=== PATIENT | male | born 1960 | race Caucasian/White ===

== ENCOUNTER 2017-11-01 09:14 | Emergency (ER) | payer MEDICAID, OTHER ==
[2017-11-01 10:15] LABS: BASO % 0.1 % (0.0-2.0); EOS # 0.3 K/uL (0.0-0.7); EOS % 9.1 % (0.0-4.0); HEMOGLOBIN 15.2 g/dL (12.0-18.0); LYMPH # 1.9 K/uL (1.0-4.3); MEAN CELL VOLUME 83.2 fL (80.0-94.0); MEAN CORPUSCULAR HEMOGLOBIN 27.3 pg (27.0-31.0); MEAN CORPUSCULAR HGB CONC 32.9 g/dL (33.0-37.0); MEAN PLATELET VOLUME 7.1 fL (7.2-11.7); MONO # 0.3 K/uL (0.0-0.8); MONO % 7.6 % (0.0-10.0); NEUT # 1.2 K/uL (1.8-7.0); NEUT % 32.2 % (50.0-75.0); NRBC % 0.1 % (0.0-2.0); RBC 5.57 Mil/uL (4.40-5.90); RED CELL DISTRIBUTION WIDTH 13.3 % (11.5-14.5)
[2017-11-01 10:16] LABS: WHITE BLOOD COUNT 3.7 K/uL (4.8-10.8)
[2017-11-01 10:29] LABS: CALCIUM 8.9 mg/dl (8.6-10.4)
[2017-11-01 10:39] LABS: ALB/GLOB RATIO 1.3 (1.0-2.1); ALBUMIN 4.4 g/dL (3.5-5.0); ALT/SGPT 80 U/L (21-72); AST/SGOT 48 U/L (17-59); BLOOD UREA NITROGEN 18 mg/dL (9-20); GFR NON-AFRICAN AMERICAN > 60
--- NOTE | 2017-11-01 11:20 | RAD ---
Date of service: 11/01/2017 PROCEDURE: CHEST RADIOGRAPH, 1 VIEW HISTORY: chest pain COMPARISON: None available. FINDINGS: LUNGS: Clear. PLEURA: No pneumothorax or pleural fluid seen. CARDIOVASCULAR: Minimal cardiomegaly. Possible minimal pulmonary venous congestion OSSEOUS STRUCTURES: Thoracic spondylosis. Bilateral shoulder arthrosis. VISUALIZED UPPER ABDOMEN: Normal. OTHER FINDINGS: None. IMPRESSION: Minimal cardiomegaly. Possible minimal pulmonary venous congestion.
--- NOTE | 2017-11-01 11:20 | C.PDOC ---
History Of Present Illness The patient reports 2 day history of right rib pain which he describes as sharp. Patient states that the pain is worsened with coughing and movement. Denies history of similar symptoms, fever, nausea, vomiting, SOB, back pain, numbness, weakness. Time Seen by Provider: 11/01/17 09:22 Chief Complaint (Nursing): Rib Injury History Per: Patient History/Exam Limitations: no limitations Current Symptoms Are (Timing): Still Present Severity: Mild Recent travel outside of the [place]: No Past Medical History Reviewed: Historical Data, Nursing Documentation, Vital Signs Vital Signs: Last Vital Signs Temp 98.6 F 11/01/17 11:24 Pulse 66 11/01/17 11:24 Resp 18 11/01/17 11:24 BP 135/80 11/01/17 11:24 Pulse Ox 96 11/01/17 11:31 - Medical History PMH: No Chronic Diseases Family History: States: No Known Family Hx - Social History Hx Tobacco Use: Yes Hx Alcohol Use: No Hx Substance Use: No - Immunization History Hx Tetanus Toxoid Vaccination: No Hx Influenza Vaccination: No Hx Pneumococcal Vaccination: No Review Of Systems Constitutional: Negative for: Fever, Chills ENT: Negative for: Ear Pain Cardiovascular: Positive for: Chest Pain. Negative for: Edema, Light Headedness Respiratory: Negative for: Cough Gastrointestinal: Negative for: Nausea, Vomiting, Abdominal Pain Genitourinary: Negative for: Dysuria Musculoskeletal: Negative for: Neck Pain Skin: Negative for: Rash, Lesions Neurological: Negative for: Weakness, Numbness Psych: Negative for: Anxiety, Depression Physical Exam - Physical Exam Appears: Non-toxic, No Acute Distress Skin: Normal Color, Warm, No Rash Head: Atraumatic, Normacephalic Eye(s): bilateral: Normal Inspection, PERRL, EOMI Oral Mucosa: Moist Neck: Normal ROM, Supple Chest: Symmetrical, Tenderness ((+) tenderness to the anterior right ribs ), No Ecchymosis, No Subcutaneous Emphysema Cardiovascular: Rhythm Regular, No Friction Rub, No Murmur Respiratory: Normal Breath Sounds, No Rales, No Rhonchi, No Stridor, No Wheezing Gastrointestinal/Abdominal: Bowel Sounds, Soft, No Tenderness, No Guarding, No Hernia Back: Normal Inspection, No CVA Tenderness Extremity: Normal ROM, No Swelling Neurological/Psych: Oriented x3, Normal Speech, Normal Motor Gait: Steady ED Course And Treatment - Laboratory Results Result Diagrams: 11/01/17 10:12 11/01/17 10:12 ECG: Interpreted By Me ECG Rhythm: Sinus Rhythm ECG Interpretation: Normal Interpretation Of ECG: normal axis Rate From EC (bpm) O2 Sat by Pulse Oximetry: 96 (on RA) Pulse Ox Interpretation: Normal Medical Decision Making Medical Decision Making: On re-exam, the patient is resting comfortably. Lungs are CTA, heart is RRR, abdomen is soft, non-tender and the patient is tolerating PO well. Patient is ambulatory with steady gait. Follow up with the medical doctor within 1-2 days without fail. Return if worsened. Disposition - Disposition Referrals: [facility] [Outside] Disposition: HOME/ ROUTINE Disposition Time: 11:27 Condition: STABLE Additional Instructions: Follow up with the medical doctor within 1-2 days without fail. Return if worsened. Prescriptions: Naproxen [Naprosyn] 500 mg PO BID #20 tab Instructions: Costochondritis Forms: [employer] (Persian) - Clinical Impression Clinical Impression: Costochondritis
[2017-11-01 11:25] VITALS: BP 135/80; PULSE 66; RESP 18; TEMP 98.6
[2017-11-01 11:27] VITALS: O2SAT 96
--- NOTE | 2017-11-03 22:59 | CARD ---
APPROVED REPORT Date of service: 11/01/2017 EKG Measurement Heart [id number] <Conclusion> Normal sinus rhythm Normal ECG
== END 2017-11-01 11:44 | disposition home or self-care (01) ==
LOC: C.ER 09:14
DX: M94.0 Chondrocostal junction syndrome [Tietze] (principal); Z72.0 Tobacco use
CPT/HCPCS: 71045; 80053; 84484; 85025; 85378; 93005; 96374; 99285; J1885